=== PATIENT | male | born 1985 | race Caucasian/White ===

== ENCOUNTER 2017-07-01 03:46 | Emergency (ER) | payer SELFPAY ==
[~2017-07-01] VITALS: Ht 170.2 cm; Wt 83.9 kg
[~2017-07-01 03:46] MED LIST: CLIN1CAP4 PO
[2017-07-01 04:05] VITALS: BP 127/78
== END 2017-07-01 05:39 | disposition left against medical advice (07) ==
LOC: EDBD 03:46 → ER 03:48
DX: T40.2X1A Poisoning by other opioids, accidental (unintentional), initial encounter (principal); Z53.21 Procedure and treatment not carried out due to patient leaving prior to being seen by health care provider; Y92.89 Other specified places as the place of occurrence of the external cause